=== PATIENT | female | born 1975 | race Caucasian/White ===

== ENCOUNTER 2018-08-11 17:20 | Emergency (ER) | payer OTHER ==
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
[2018-08-11 17:26] VITALS: BP 96/64; PULSE 59; TEMP 97.8; BMI 22.8
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
[2018-08-11] MEDS ORDERED: KETOROLAC TROMETHAMINE 15 MG/ML VIAL IM ONE (17:59)
[2018-08-11] MEDS ORDERED: KETOROLAC TROMETHAMINE 15 MG/ML VIAL ONE (18:22)
[2018-08-11] MEDS ORDERED: CYCLOBENZAPRINE HCL 5 MG TABLET PO ONE (19:01)
[2018-08-11] MEDS ORDERED: CYCLOBENZAPRINE HCL 10 MG TABLET (FP) ONE (19:04)
[2018-08-12] MEDS ORDERED: CYCLOBENZAPRINE HCL 5 MG TABLET PO ONE ×2 (18:31→18:52)
== END 2018-08-11 19:24 | disposition home or self-care (01) ==
LOC: FER 17:20
PROC: 3E0233Z Introduction of Anti-inflammatory into Muscle, Percutaneous Approach (ICD-10-PCS; principal; 2018-08-11)
DX: M79.605 Pain in left leg (principal)
CPT/HCPCS: 84703; 96372; 99282-25

== ENCOUNTER 2018-09-18 20:25 | Emergency (ER) | payer OTHER ==
[2018-09-18 20:31] VITALS: BP 101/56; PULSE 70; TEMP 98.6; BMI 21.7
[2018-09-18] MEDS ORDERED: KETOROLAC TROMETHAMINE 60 MG/2 ML VIAL IM ONE (21:05)
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
[2018-09-18] MEDS ORDERED: KETOROLAC TROMETHAMINE 60 MG/2 ML VIAL ONE (21:08)
== END 2018-09-18 21:16 | disposition home or self-care (01) ==
LOC: FER 20:25
PROC: 3E0233Z Introduction of Anti-inflammatory into Muscle, Percutaneous Approach (ICD-10-PCS; principal; 2018-09-18)
DX: M79.605 Pain in left leg (principal); F41.9 Anxiety disorder, unspecified
CPT/HCPCS: 96372; 99282-25

== ENCOUNTER 2018-09-30 19:46 | Emergency (ER) | payer OTHER ==
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
[2018-09-30 19:58] VITALS: BP 104/67; PULSE 60; TEMP 98.1; BMI 21.7
[2018-09-30] MEDS ORDERED: KETOROLAC TROMETHAMINE 60 MG/2 ML VIAL ONE (20:05)
[2018-09-30] MEDS ORDERED: KETOROLAC TROMETHAMINE 60 MG/2 ML VIAL IM ONE (20:09)
== END 2018-09-30 20:19 | disposition home or self-care (01) ==
LOC: FER 19:46
PROC: 3E0233Z Introduction of Anti-inflammatory into Muscle, Percutaneous Approach (ICD-10-PCS; principal; 2018-09-30)
DX: M25.552 Pain in left hip (principal)
CPT/HCPCS: 99281-25

== ENCOUNTER 2018-10-08 10:44 | Emergency (ER) | payer OTHER ==
[2018-10-08 10:50] VITALS: BP 105/65; PULSE 67; TEMP 98.2; BMI 22.0
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
--- NOTE | 2018-10-08 11:18 | PDOC ---
Attending Attestation - Resident Resident Name: SharondaApriljoe - ED Attending Attestation I have performed the following: I have examined & evaluated the patient, The case was reviewed & discussed with the resident, I agree w/resident's findings & plan, Exceptions are as noted - HPI HPI: 10/08/18 12:36 Patient with chronic hip pain, on pain management, periodic breakthroughs requiring Toradol injection. Requests Toradol today. Her pain is the same as in the past, no new components, no fever, swelling, erythema, and no gait disturbance or limp. - Physicial Exam PE: 10/08/18 12:37 Physical exam: Vital signs normal no fever Hip with good range of motion. No erythema, heat, or restriction. Gait stable and unimpaired. Pulses full and symmetric. No distal sensory or motor deficits. 10/08/18 12:37 - Medical Decision Making 10/08/18 12:37 Assessment: Exacerbation of chronic hip pain Plan: Toradol injection with good pain relief. To follow-up with orthopedist in pain management physician as directed
[2018-10-08] MEDS ORDERED: KETOROLAC TROMETHAMINE 30 MG/1 ML VIAL IM ONE (11:22)
[2018-10-08] MEDS ORDERED: KETOROLAC TROMETHAMINE 30 MG/1 ML VIAL ONE (11:32)
== END 2018-10-08 12:20 | disposition home or self-care (01) ==
LOC: FER 10:44
PROC: 3E0233Z Introduction of Anti-inflammatory into Muscle, Percutaneous Approach (ICD-10-PCS; principal; 2018-10-08)
DX: M25.552 Pain in left hip (principal); G89.29 Other chronic pain; F41.9 Anxiety disorder, unspecified; F32.9 Major depressive disorder, single episode, unspecified
CPT/HCPCS: 96372; 99283-25

== ENCOUNTER 2018-10-16 07:31 | Emergency (ER) | payer OTHER ==
--- NOTE | 2018-10-16 07:38 | PDOC ---
History of Present Illness - General Chief Complaint: Pain, Acute Stated Complaint: LEFT HIP PAIN Time Seen by Provider: 10/16/18 07:38 History Source: Patient - History of Present Illness Timing/Duration: unsure, intermittent Severity: moderate Associated Symptoms: reports: denies symptoms Past History - Travel Traveled outside of the country in the last 30 days: No Close contact w/someone who was outside of country & ill: No - Past Medical History Allergies/Adverse Reactions: Allergies Allergy/AdvReac Type Severity Reaction Status Date / Time No Known Allergies Allergy Verified 10/08/18 10:45 Home Medications: Ambulatory Orders Clonazepam [Klonopin] 1 mg PO TID PRN 01/04/14 Escitalopram Oxalate [Lexapro -] 20 mg PO DAILY 01/04/14 Bupropion HCl [Wellbutrin -] 150 mg PO DAILY 08/19/16 COPD: No Disorders: Yes (H/O UTI'S) Psychiatric Problems: Yes (ANXIETY) - Suicide/Smoking/Psychosocial Hx Smoking History: Never smoked Have you smoked in the past 12 months: No Number of Cigarettes Smoked Daily: 0 'Breaking Loose' booklet given: 08/11/18 Hx Alcohol Use: No Drug/Substance Use Hx: No Substance Use Type: None Review of Systems - Review of Systems Constitutional: No: Symptoms Reported, See HPI, Chills, Diaphoresis, Fever, Loss of Appetite, Malaise, Night Sweats, Weakness, Weight Stable, Unintentional Wgt. Loss, Unexplained wgt Loss, Other HEENTM: No: Symptoms Reported, See HPI, Eye Pain, Blurred Vision, Tearing, Recent change in vision, Double Vision, Cataracts, Ear Pain, Ocular Prothesis, Ear Discharge, Nose Pain, Nose Congestion, Tinnitus, Nose Bleeding, Hearing Loss , Throat Pain, Throat Swelling, Mouth Pain, Dental Problems, Difficulty Swallowing, Mouth Swelling, Other Respiratory: No: Symptoms reported, See HPI, Cough, Orthopnea, Shortness of Breath, SOB with Exertion, SOB at Rest, Stridor, Wheezing, Productive cough, Hemoptysis, Other Cardiac (ROS): No: Symptoms Reported, See HPI, Chest Pain, Edema, Irregular Heart Rate, Lightheadedness, Palpitations, Syncope, Chest Tightness, Other ABD/GI: No: Symptoms Reported, See HPI, Abdominal Distended, Abd. Pain w/ defecation, Blood Streaked Bowels, Constipated, Diarrhea, Difficulty Swallowing , Nausea, Poor Appetite, Poor Fluid Intake, Rectal Bleeding, Vomiting, Indigestion, Abdominal cramping, Tarry Stools, Other : No: Symptoms Reported, See HPI, Burning, Dysuria, Discharge, Frequency, Flank Pain, Hematuria, Incontinence, Pain, Urgency, Testicular Mass, Testicular Swelling, Lesions, Testicular Pain, Other Musculoskeletal: No: Symptoms Reported, See HPI, Back Pain, Gout, Joint Pain, Joint Swelling, Muscle Pain, Muscle Weakness, Neck Pain, Joint Stiffness, Other Integumentary: No: Symptoms Reported, See HPI, Bruising, Change in Color, Change in Hair/Nails, Dryness, Erythema, Flushing, Lesions, Lumps, Pallor, Pruritus, Rash, Sweating, Other Neurological: No: Symptoms reported, See HPI, Headache, Numbness, Paresthesia, Pre-Existing Deficit, Seizure, Tingling, Tremors, Weakness, Unsteady Gait, Ataxia, Dizziness, Other Psychiatric: Yes: Anxiety, Depression. No: Frequent Crying, Stressors, Sleep Pattern Change, Emotional Problems, Mood Swings, Change in Appetite, Other Endocrine: No: Symptoms Reported, See HPI, Excessive Sweating, Flushing, Intolerance to Cold, Intolerance to Heat, Increased Hunger, Increased Thirst, Increased Urine, Unexplained Weight Gain, Unexplained Weight Loss, Change in Weight, Other *Physical Exam - Physical Exam General Appearance: Yes: Nourished, Appropriately Dressed, Mild Distress. No: Apparent Distress, Disheveled HEENT: positive: EOMI, DAYANA, Normal ENT Inspection, Normal Voice, TMs Normal, Pharynx Normal Neck: positive: Trachea midline, Supple. negative: Tender, Normal Thyroid, Rigid Respiratory/Chest: positive: Lungs Clear, Normal Breath Sounds. negative: Chest Tender, Respiratory Distress Cardiovascular: positive: Regular Rhythm, Regular Rate, S1, S2 Musculoskeletal: positive: Normal Inspection. negative: CVA Tenderness Extremity: positive: Tender (left hip pain), Pelvis Stable Integumentary: positive: Normal Color, Dry, Warm Neurologic: positive: fine patcher II-XII NML intact, Fully Oriented, Alert, Normal Mood/ Affect, Normal Response, Other (strength 4/5 throughout. Pt gives poor effort, as she doesn't want to hurt self). negative: Confused, Disoriented ED Treatment Course - LABORATORY CBC & Chemistry Diagram: 10/16/18 07:53 10/16/18 07:46 Medical Decision Making - Medical Decision Making 10/16/18 09:41 Basic labs were sent, as pt has been here on several visits for months, and we have no baseline studies. All labs are normal. Pt feels better with toradol and she is ready to go home. *DC/Admit/Observation/Transfer Diagnosis at time of Disposition: Chronic left hip pain - Discharge Dispostion Disposition: HOME Condition at time of disposition: Improved Decision to Admit order: No - Referrals - Patient Instructions Printed Discharge Instructions: Stretching Exercises, Start a Regular Exercise Program, Home-based Exercise May Improve Function of Patients with Alzheimer's - Post Discharge Activity
[2018-10-16 07:40] VITALS: BP 99/51; PULSE 63; TEMP 98.2; BMI 20.7
[2018-10-16] MEDS ORDERED: KETOROLAC TROMETHAMINE 60 MG/2 ML VIAL IM ONE (07:48)
[2018-10-16] MEDS ORDERED: METHOCARBAMOL 500 MG TABLET PO ONE (07:49)
[2018-10-16] MEDS ORDERED: KETOROLAC TROMETHAMINE 60 MG/2 ML VIAL ONE (07:51)
[2018-10-16] MEDS ORDERED: METHOCARBAMOL 500 MG TABLET ONE (07:51)
[2018-10-16 08:15] LABS: BASO % 0.7 % (0-2.0); EOS % 2.6 % (0-4.5); HEMATOCRIT 35.9 % (32.4-45.2); HEMOGLOBIN 11.7 GM/dl (10.7-15.3); MCH 29.8 pg (25.7-33.7); MCHC 32.6 g/dl (32.0-36.0); MEAN CELL VOLUME 91.2 fl (80-96); MONO % 7.6 % (3.8-10.2); NEUT % 66.1 % (42.8-82.8); PLATELET COUNT 175 K/MM3 (134-434); RBC 3.93 M/mm3 (3.60-5.2); RDW 13.3 % (11.6-15.6); WHITE BLOOD COUNT 5.4 K/mm3 (4.0-10.8)
[2018-10-16 08:25] LABS: ALBUMIN 3.9 g/dl (3.4-5.0); ALK PHOS 31 U/L (45-117); ANION GAP 5 MMOL/L (8-16); BILIRUBIN,TOTAL 0.4 mg/dl (0.2-1); BLOOD UREA NITROGEN 18 mg/dl (7-18); CALCIUM 8.7 mg/dl (8.5-10); CHLORIDE 105 mmol/L (98-107); CO2 24 mmol/L (21-32); CREATININE 0.8 mg/dl (0.55-1.3); GLUCOSE,RANDOM 105 mg/dl (74-106); POTASSIUM 4.2 mmol/L (3.5-5.1); SGOT/AST 16 U/L (15-37); SGPT/ALT 12 U/L (13-61); SODIUM 134 mmol/L (136-145); TOT PROT 5.9 g/dl (6.4-8.2)
== END 2018-10-16 09:08 | disposition home or self-care (01) ==
LOC: FER 07:31
PROC: 3E0233Z Introduction of Anti-inflammatory into Muscle, Percutaneous Approach (ICD-10-PCS; principal; 2018-10-16)
DX: M25.552 Pain in left hip (principal); G89.29 Other chronic pain; F41.9 Anxiety disorder, unspecified
CPT/HCPCS: 36415; 80053; 83735; 85025; 96372; 99281-25

== ENCOUNTER 2019-03-27 17:28 | Emergency (ER) | payer OTHER ==
[2019-03-27 17:48] VITALS: BP 99/56; PULSE 60; TEMP 98; BMI 21.7
[2019-03-27] MEDS ORDERED: ACETAMINOPHEN 500 MG TABLET (FP) PO ONE (17:49)
[2019-03-27] MEDS ORDERED: CYCLOBENZAPRINE HCL 10 MG TABLET (FP) PO ONE (17:50)
[2019-03-27] MEDS ORDERED: ACETAMINOPHEN 500 MG TABLET (FP) ONE (18:04)
[2019-03-27] MEDS ORDERED: CYCLOBENZAPRINE HCL 10 MG TABLET (FP) ONE (18:04)
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
== END 2019-03-27 18:25 | disposition home or self-care (01) ==
LOC: FER 17:28
DX: M79.18 Myalgia, other site (principal); Y04.2XXA Assault by strike against or bumped into by another person, initial encounter; Y92.9 Unspecified place or not applicable; Y93.9 Activity, unspecified; F41.8 Other specified anxiety disorders; F43.10 Post-traumatic stress disorder, unspecified
CPT/HCPCS: 99281-25

== ENCOUNTER 2019-04-07 12:04 | Emergency (ER) | payer OTHER ==
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
[2019-04-07 12:10] VITALS: BP 104/59; PULSE 65; TEMP 97.6; BMI 21.4
[2019-04-07] MEDS ORDERED: KETOROLAC TROMETHAMINE 60 MG/2 ML VIAL IM ONE (12:39)
[2019-04-07] MEDS ORDERED: KETOROLAC TROMETHAMINE 60 MG/2 ML VIAL ONE (12:49)
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
== END 2019-04-07 13:45 | disposition home or self-care (01) ==
LOC: FER 12:04
PROC: 3E0233Z Introduction of Anti-inflammatory into Muscle, Percutaneous Approach (ICD-10-PCS; principal; 2019-04-07)
DX: S70.01XA Contusion of right hip, initial encounter (principal); X58.XXXA Exposure to other specified factors, initial encounter; Y93.9 Activity, unspecified; Y92.89 Other specified places as the place of occurrence of the external cause; F41.9 Anxiety disorder, unspecified; F32.9 Major depressive disorder, single episode, unspecified; F43.10 Post-traumatic stress disorder, unspecified; R41.3 Other amnesia; G89.29 Other chronic pain
CPT/HCPCS: 73502-TC-RT-FY; 99283-25

== ENCOUNTER 2019-09-16 11:42 | Emergency (ER) | payer MEDICARE, OTHER ==
[2019-09-16] MEDS ORDERED: SODIUM CHLORIDE 0.9% 500 ML INFUS.BAG IV ONE (11:56)
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
[2019-09-16 12:16] VITALS: BP 100/50; PULSE 62; TEMP 98; BMI 22.4
[2019-09-16 12:22] LABS: BASO % 0.9 % (0-2.0); EOS % 2.6 % (0-4.5); HEMATOCRIT 34.9 % (32.4-45.2); HEMOGLOBIN 11.2 GM/dl (10.7-15.3); LYMPH % 32.7 % (8-40); MCH 28.8 pg (25.7-33.7); MCHC 32.1 g/dl (32.0-36.0); MEAN CELL VOLUME 89.7 fl (80-96); MEAN PLT VOLUME 10.5 fl (7.5-11.1); MONO % 8.9 % (3.8-10.2); NEUT % 54.9 % (42.8-82.8); PLATELET COUNT 155 K/MM3 (134-434); RBC 3.89 M/mm3 (3.60-5.2); RDW 13.7 % (11.6-15.6)
[2019-09-16 12:43] LABS: ALBUMIN 3.9 g/dl (3.4-5.0); BILIRUBIN,TOTAL 0.4 mg/dl (0.2-1); CALCIUM 8.7 mg/dl (8.5-10); CREATININE 0.8 mg/dl (0.55-1.3); POTASSIUM 4.3 mmol/L (3.5-5.1); TOT PROT 5.9 g/dl (6.4-8.2)
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
== END 2019-09-16 14:14 | disposition home or self-care (01) ==
LOC: FER 11:42
PROC: 3E0337Z Introduction of Electrolytic and Water Balance Substance into Peripheral Vein, Percutaneous Approach (ICD-10-PCS; principal; 2019-09-16)
DX: E86.0 Dehydration (principal); R53.81 Other malaise; R53.83 Other fatigue
CPT/HCPCS: 36415; 80053; 81003; 85025; 87804; 99284-25